=== PATIENT | female | born 1995 | race Caucasian/White ===

== ENCOUNTER 2017-01-17 12:15 | Emergency (ER) | payer MEDICAID ==
[2017-01-17 12:30] VITALS: BP 138/89
--- NOTE | 2017-01-17 13:09 | EDM.PDOC ---
ED HPI GENERAL MEDICAL PROBLEM - General Chief Complaint: Neuro Symptoms/Deficits Stated Complaint: PAIN/NUMBNESS AND TINGLING ALL OVER Time Seen by Provider: 01/17/17 12:29 Source of Information: Reports: Patient History Limitations: Reports: No Limitations - History of Present Illness INITIAL COMMENTS - FREE TEXT/NARRATIVE: Patient is a 21-year-old female presents to ED with multiple complaints. States most of her symptoms have been going on for many months and she's been worked up by her primary care provider for multiple as he states. She has been worked up for MS in the past with no positive findings. She presents today complaining of intermittent extreme fatigue, intermittent blurred vision, intermittent numbness and tingling everywhere, intermittent muscle pains everywhere, intermittent stiffness everywhere, intermittent pressure everywhere, constipation, anxiety,intermittent dizziness, forgetfulness, lack of motivation , intermittent headaches, loss of appetite, and intermittent urine leaking. She has chronic pain to the adnexal area and has been evaluated by dr. Farnsworth. She is scheduled to undergo exploratory laparoscopic surgery. She has had intermittent RUQ abdominal pain not affected by eating. Ultrasound of the abdomen was obtained with negative findings. Patient states since giving to a healthy boy this past Mar 2017 symptoms have increased. States she has in the past been on three different medications for depression to which she was required to quit with . 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 Providers who have evaluated the patient at [facility] are unclear what is contributing to her current state. Patient denies being under more stress recently or potentially having depression. Patient currently denies SOB, CP, N/V, weakness, N/T, vision changes, pain, or any additional complaints. Mother in law is present with patient. - Related Data Allergies Allergy/AdvReac Type Severity Reaction Status Date / Time No Known Allergies Allergy Verified 01/17/17 12:24 Home Meds: Home Meds Cholecalciferol (Vitamin D3) [Vitamin D] 5,000 unit PO DAILY 10/05/16 [History] Enoxaparin [Lovenox] 40 mg SUBCUT DAILY 10/05/16 [History] Potassium Chloride 20 meq PO DAILY 10/05/16 [History] Sertraline [Zoloft] 25 mg PO BEDTIME #30 tablet 01/17/17 [Rx] Past Medical History - Past Health History Medical/Surgical History: Denies Medical/Surgical History Respiratory History: Reports: PE Other Respiratory History: PE June 2015 Gastrointestinal History: Reports: Gastritis, GERD, Other (See Below) Other Gastrointestinal History: Ulcer B[employer]ER HYDRAULIC History: Reports: Other OB/BYN History: IUD Mirena Neurological History: Reports: Migraines Psychiatric History: Reports: Anxiety Hematologic History: Reports: Other (See Below) Other Hematologic History: factor 5 - Past Surgical History Respiratory Surgical History: Reports: None Neurological Surgical History: Reports: None Social & Family History - Family History Family Medical History: Noncontributory - Tobacco Use Smoking Status *Q: Never Smoker Second Hand Smoke Exposure: Yes - Caffeine Use Caffeine Use: Reports: Soda - Alcohol Use Days Per Week of Alcohol Use: 0 - Recreational Drug Use Recreational Drug Use: No ED ROS GENERAL - Review of Systems Review Of Systems: See Below Constitutional: Reports: Other (hot/cold). Denies: Fever, Chills HEENT: Reports: Vision Change (intermittent blurred vision) Respiratory: Denies: Shortness of Breath, Cough, Sputum, Hemoptysis Cardiovascular: Reports: Palpitations (intermittent). Denies: Chest Pain, Dyspnea on Exertion, Lightheadedness, Syncope GI/Abdominal: Reports: Abdominal Pain (intermittent, right ). Denies: Constipation, Diarrhea, Nausea, Vomiting : Reports: Incontinence (Onset since and delivery). Denies: Dysuria , Flank Pain, Frequency, Hematuria Musculoskeletal: Reports: Back Pain, Muscle Pain (generalized) ED EXAM, NEURO - Physical Exam Exam: See Below Exam Limited By: No Limitations General Appearance: Alert, WD/WN, No Apparent Distress Eye Exam: Bilateral Eye: EOMI, PERRL Ears: Hearing Grossly Normal Nose: Normal Inspection Throat/Mouth: Normal Inspection, Normal Oropharynx, Normal Voice, No Airway Compromise Head Exam: Atraumatic, Normocephalic Neck: Normal Inspection, Supple, Non-Tender, Full Range of Motion. No: Lymphadenopathy (L), Lymphadenopathy (R) Respiratory/Chest: No Respiratory Distress, Lungs Clear, Normal Breath Sounds, No Accessory Muscle Use, Chest Non-Tender Cardiovascular: Normal Peripheral Pulses, Regular Rate, Rhythm, No Murmur GI/Abdominal: Normal Bowel Sounds, Soft, Non-Tender, No Organomegaly, No Distention Neurological: Alert, Normal Mood/Affect, Normal Dorsiflexion, CN II-XII Intact, Normal Plantar Flexion, Normal Gait, No Motor/Sensory Deficits, Oriented x 3, Other (cerebellar intact: rhomberg, finger to nose. Able to walk on heals and toes. ) Back Exam: Normal Inspection Extremities: Normal Inspection, Normal Range of Motion, Non-Tender, No Pedal Edema, Normal Capillary Refill Psychiatric: Normal Affect, Normal Mood Skin Exam: Warm, Dry, Intact, Normal Color, No Rash Course - Vital Signs Last Recorded V/S: Last Vital Signs Temp 98.1 F 01/17/17 15:05 Pulse 85 01/17/17 15:05 Resp BP 138/89 01/17/17 12:25 Pulse Ox 99 01/17/17 15:05 - Orders/Labs/Meds Labs: Laboratory Tests 01/17/17 01/17/17 01/17/17 Range/Units 13:20 13:20 13:20 WBC 8.94 (3.98-10.04) K/mm3 RBC 4.85 (3.98-5.22) M/mm3 Hgb 14.0 (11.2-15.7) gm/L Hct 40.3 (34.1-44.9) % MCV 83.1 (79.4-94.8) fl MCH 28.9 (25.6-32.2) pg MCHC 34.7 (32.2-35.5) g/dl RDW Std Deviation 39.6 (36.4-46.3) fL Plt Count 236 (182-369) K/mm3 MPV 8.9 L (9.4-12.3) fl Neut % (Auto) 68.7 (34.0-71.1) % Lymph % (Auto) 23.9 (19.3-51.7) % Lassen % (Auto) 5.9 (4.7-12.5) % Eos % (Auto) 1.3 (0.7-5.8) Baso % (Auto) 0.1 (0.1-1.2) % Neut # (Auto) 6.13 (1.56-6.13) K/mm3 Lymph # (Auto) 2.14 (1.18-3.74) K/mm3 Lassen # (Auto) 0.53 H (0.24-0.36) K/mm3 Eos # (Auto) 0.12 (0.04-0.36) K/mm3 Baso # (Auto) 0.01 (0.01-0.08) K/mm3 ESR 13 (0-20) mm/hr Sodium 142 (136-145) mEq/L Potassium 3.8 (3.5-5.1) mEq/L Chloride 106 (98-107) mEq/L Carbon Dioxide 26 (21-32) mEq/L Anion Gap 13.8 (5-15) BUN 15 (7-18) mg/dL Creatinine 0.6 (0.55-1.02) mg/dL Est Cr Clr Drug Dosing TNP Estimated GFR (MDRD) > 60 (>60) mL/min BUN/Creatinine Ratio 25.0 H (14-18) Glucose 105 (74-106) mg/dL Calcium 8.8 (8.5-10.1) mg/dL Total Bilirubin 0.8 (0.2-1.0) mg/dL AST 14 L (15-37) U/L ALT 27 (14-59) U/L Alkaline Phosphatase 99 (46-116) U/L Total Protein 7.6 (6.4-8.2) g/dl Albumin 3.8 (3.4-5.0) g/dl Globulin 3.8 gm/dL Albumin/Globulin Ratio 1.0 (1-2) Urine Color (Yellow) Urine Appearance (Clear) Urine pH (5.0-8.0) Ur Specific Anton (1.005-1.030) Urine Protein (Negative) Urine Glucose (UA) (Negative) Urine Ketones (Negative) Urine Occult Blood (Negative) Urine Nitrite (Negative) Urine Bilirubin (Negative) Urine Urobilinogen (0.2-1.0) Ur Leukocyte Esterase (Negative) Urine RBC (0-5) /hpf Urine WBC (0-5) /hpf Ur Epithelial Cells Ur Squamous Epith Cells (0-5) /hpf Urine Bacteria (FEW) /hpf Urine Mucus (FEW) /hpf Urine HCG, Qual (NEGATIVE) 01/17/17 01/17/17 Range/Units 14:14 14:14 WBC (3.98-10.04) K/mm3 RBC (3.98-5.22) M/mm3 Hgb (11.2-15.7) gm/L Hct (34.1-44.9) % MCV (79.4-94.8) fl MCH (25.6-32.2) pg MCHC (32.2-35.5) g/dl RDW Std Deviation (36.4-46.3) fL Plt Count (182-369) K/mm3 MPV (9.4-12.3) fl Neut % (Auto) (34.0-71.1) % Lymph % (Auto) (19.3-51.7) % Lassen % (Auto) (4.7-12.5) % Eos % (Auto) (0.7-5.8) Baso % (Auto) (0.1-1.2) % Neut # (Auto) (1.56-6.13) K/mm3 Lymph # (Auto) (1.18-3.74) K/mm3 Lassen # (Auto) (0.24-0.36) K/mm3 Eos # (Auto) (0.04-0.36) K/mm3 Baso # (Auto) (0.01-0.08) K/mm3 ESR (0-20) mm/hr Sodium (136-145) mEq/L Potassium (3.5-5.1) mEq/L Chloride (98-107) mEq/L Carbon Dioxide (21-32) mEq/L Anion Gap (5-15) BUN (7-18) mg/dL Creatinine (0.55-1.02) mg/dL Est Cr Clr Drug Dosing Estimated GFR (MDRD) (>60) mL/min BUN/Creatinine Ratio (14-18) Glucose (74-106) mg/dL Calcium (8.5-10.1) mg/dL Total Bilirubin (0.2-1.0) mg/dL AST (15-37) U/L ALT (14-59) U/L Alkaline Phosphatase (46-116) U/L Total Protein (6.4-8.2) g/dl Albumin (3.4-5.0) g/dl Globulin gm/dL Albumin/Globulin Ratio (1-2) Urine Color Yellow (Yellow) Urine Appearance Clear (Clear) Urine pH 6.0 (5.0-8.0) Ur Specific Anton 1.025 (1.005-1.030) Urine Protein Negative (Negative) Urine Glucose (UA) Negative (Negative) Urine Ketones Negative (Negative) Urine Occult Blood Negative (Negative) Urine Nitrite Negative (Negative) Urine Bilirubin Negative (Negative) Urine Urobilinogen 0.2 (0.2-1.0) Ur Leukocyte Esterase Negative (Negative) Urine RBC Not seen (0-5) /hpf Urine WBC 0-5 (0-5) /hpf Ur Epithelial Cells Not Reportable Ur Squamous Epith Cells 0-5 (0-5) /hpf Urine Bacteria Not seen (FEW) /hpf Urine Mucus Not seen (FEW) /hpf Urine HCG, Qual Negative (NEGATIVE) - Re-Assessments/Exams Free Text/Narrative Re-Assessment/Exam: 01/17/17 13:03 Ordered CBC, chem 14, UA with micro-, ESR, and CRP, and urine hCG. 1310 Patient has multiple somatic complaints. Question is not related to depression. She has had extensive workup with no positive findings. 01/17/17 14:[address] Edge, he believes patient may have somatization disorder. She has been worked up for MS with MRI of brain and evaluation by Neurology. She has been on a multitude of antidepressants in the past. Nothing noted for the past two years. Agrees with starting the patient on zoloft 25mg everyday with further evaluation by Laurita Winkler or in the next few weeks for further evaluation and treatment. Departure - Departure Time of Disposition: 15:05 Disposition: Home, Self-Care 01 Clinical Impression: Somatic complaints, multiple, Numbness and tingling, Generalized headaches, Muscle pain, Lack of motivation, depression Fatigue Qualifiers: Fatigue type: due to depression Qualified Code(s): F32.9 - Major depressive disorder, single episode, unspecified Depressed Qualifiers: Depression Type: other depression Qualified Code(s): F32.89 - Other specified depressive episodes - Discharge Information Prescriptions: Sertraline [Zoloft] 25 mg PO BEDTIME #30 tablet Instructions: General Headache Without Cause, [id number] Referrals: Leilani Cardona PA-C [Primary Care Provider] - Jodi Winkler NP [Nurse Practitioner] - Darell Melo MD [Physician] - Forms: ED Department Discharge Additional Instructions: Will have you start taking zoloft 25mg every night has prescribed. Follow up with Leilani Cardona in one week for reevaluation and potential increase to medication dosage. Appt is scheduled with Laurita Winkler NP with Psychiatric Medicine February 03, 2107 at 430 pm. Arrive 15 minutes early. You may require testing to rule out MS. I will allow PCP to further work this up if deemed necessary. Prior testing for MS were negative and you have no concerning neurological findingsat this point on examination. Return to the E.D. as necessary for any new or worsening symptoms. Zoloft DRUG INFORMATION: What are some things I need to know or do while I take this drug? * Tell all of your health care providers that you take this drug. This includes your doctors, nurses, pharmacists, and dentists. * Avoid driving and doing other tasks or actions that call for you to be alert until you see how this drug affects you. * Do not stop taking this drug all of a sudden without calling your doctor. You may have a greater risk of side effects. If you need to stop this drug, you will want to slowly stop it as ordered by your doctor. * Avoid drinking alcohol while taking this drug. * Talk with your doctor before you use other drugs and natural products that slow your actions. * In depression, sleep and appetite may get better soon after starting this drug. Other low mood signs may take up to 4 weeks to get better. * This drug may raise the chance of a broken bone. Talk with the doctor. * This drug may raise the chance of bleeding. Sometimes, bleeding can be life- threatening. Talk with the doctor. * A very bad and sometimes deadly health problem called serotonin syndrome may happen. The risk may be greater if you take this drug with drugs for depression, migraines, or certain other drugs. Call your doctor right away if you have agitation; change in balance; confusion; hallucinations; fever; fast or abnormal heartbeat; flushing; muscle twitching or stiffness; seizures; shivering or shaking; sweating a lot; very bad diarrhea, upset stomach, or throwing up; or very bad headache. * Some people may have a higher chance of eye problems with this drug. Your doctor may want you to have an eye exam to see if you have a higher chance of these eye problems. Call your doctor right away if you have eye pain, change in eyesight, or swelling or redness in or around the eye. * This drug may affect certain lab tests. Tell all of your health care providers and lab workers that you take this drug. * Use with care in children. Talk with the doctor. * This drug may affect growth in children and teens in some cases. They may need regular growth checks. Talk with the doctor. * If you are 65 or older, use this drug with care. You could have more side effects. * Tell your doctor if you are or plan on getting . You will need to talk about the benefits and risks of using this drug while you are . * Taking this drug in the third trimester of may lead to some health problems in the . Talk with the doctor. * Tell your doctor if you are breast-feeding. You will need to talk about any risks to your baby. What are some side effects that I need to call my doctor about right away? * WARNING/CAUTION: Even though it may be rare, some people may have very bad and sometimes deadly side effects when taking a drug. Tell your doctor or get medical help right away if you have any of the following signs or symptoms that may be related to a very bad side effect: * Signs of an allergic reaction, like rash; hives; itching; red, swollen, blistered, or peeling skin with or without fever; wheezing; tightness in the chest or throat; trouble breathing or talking; unusual hoarseness; or swelling of the mouth, face, lips, tongue, or throat. * Signs of low sodium levels like headache, trouble focusing, memory problems , feeling confused, weakness, seizures, or change in balance. * Signs of bleeding like throwing up blood or throw up that looks like coffee grounds; coughing up blood; blood in the urine; black, red, or tarry stools; bleeding from the gums; vaginal bleeding that is not normal; bruises without a reason or that get bigger; or any bleeding that is very bad or that you cannot stop. * Change in how you act. * A heartbeat that does not feel normal. * Seizures. * Chest pain or pressure. * Not able to control bladder. * Very bad headache. * A big weight gain or loss. * Lowered interest in sex. * Change in sex ability. * For females, menstrual changes. These include lots of bleeding, spotting, or bleeding between cycles * Call your doctor right away if you have a painful erection (hard penis) or an erection that lasts for longer than 4 hours. This may happen even when you are not having sex. If this is not treated right away, it may lead to lasting sex problems and you may not be able to have sex. What are some other side effects of this drug? * All drugs may cause side effects. However, many people have no side effects or only have minor side effects. Call your doctor or get medical help if any of these side effects or any other side effects bother you or do not go away: * Dizziness. * Feeling sleepy. * Feeling tired or weak. * Nervous and excitable. * Upset stomach. * Loose stools (diarrhea). * Dry mouth. * Hard stools (constipation). * Not able to sleep. * Sweating a lot. * Shakiness. * Not hungry. * These are not all of the side effects that may occur. If you have questions about side effects, call your doctor. Call your doctor for medical advice about side effects. * You may report side effects to your national health agency. How is this drug best taken? * Use this drug as ordered by your doctor. Read all information given to you. Follow all instructions closely. * All products: * Keep taking this drug as you have been told by your doctor or other health care provider, even if you feel well. * To gain the most benefit, do not miss doses. * Tablets: * Take with or without food. * Capsules: * Take this drug with food. * Liquid: * Only use the measuring device that comes with this liquid drug. * Mix liquid with 1/2 cup of water, darshan annabelle, lemon-marshall soda, lemonade, or orange juice. * Drink it right away. What do I do if I miss a dose? * Take a missed dose as soon as you think about it. * If it is close to the time for your next dose, skip the missed dose and go back to your normal time. * Do not take 2 doses at the same time or extra doses. How do I store and/or throw out this drug? * Store at room temperature. * Store in a dry place. Do not store in a bathroom. * Keep all drugs in a safe place. Keep all drugs out of the reach of children and pets. * Check with your pharmacist about how to throw out unused drugs. General drug facts * If your symptoms or health problems do not get better or if they become worse, call your doctor. * Do not share your drugs with others and do not take anyone else's drugs. * Keep a list of all your drugs (prescription, natural products, vitamins, OTC ) with you. Give this list to your doctor. * Talk with the doctor before starting any new drug, including prescription or OTC, natural products, or vitamins. * Some drugs may have another patient information leaflet. If you have any questions about this drug, please talk with your doctor, nurse, pharmacist, or other health care provider. * If you think there has been an overdose, call your poison control center or get medical care right away. Be ready to tell or show what was taken, how much, and when it happened.
== END 2017-01-17 15:05 | disposition home or self-care (01) ==
LOC: JD.ED 12:15
DX: O99.345 Other mental disorders complicating the puerperium (principal); F32.89 Other specified depressive episodes; R20.0 Anesthesia of skin; R51 Headache; R52 Pain, unspecified; R27.9 Unspecified lack of coordination; F41.9 Anxiety disorder, unspecified; K21.9 Gastro-esophageal reflux disease without esophagitis; G43.909 Migraine, unspecified, not intractable, without status migrainosus; Z79.899 Other long term (current) drug therapy
CPT/HCPCS: 36415; 80053; 81001; 81025; 85025; 85652; 86141; 99283; 99284

== ENCOUNTER 2017-02-01 06:19 | Day surgery (SDC) | payer MEDICAID ==
--- NOTE | 2017-01-31 20:00 | PCM.HP ---
H&P History of Present Illness - General Date of Service: 02/01/17 Admit Problem/Dx: Pelvic pain Source of Information: Patient History Limitations: Reports: No Limitations - History of Present Illness Initial Comments - Free Text/Narative: Baudilio is a 21-year-old 1 para 1001 white female who was recently seen on 01/09/2017 in clinic for complaints of continued pelvic pain. Reports that the pain onset was while she is . It is worse after eating and with bowel movements and with voiding. She reports spotting on a daily basis but with some increased vaginal discharge. Pain is improved when she rests. She is frustrated by this pain as she does not know what is causing it. She was evaluated with transvaginal ultrasound in 12/30/2016 showing a uterus which was anteverted and midline. IUD was present within the endometrial cavity. No myometrial abnormalities were seen. Follicles were seen and within the ovaries but no cysts or solid abnormalities were present. No free fluid was identified. Measurements include: Uterus 6.0 cm in length by 2.9 cm x 4.4 cm in width Right ovary measures 3.8 x 2.5 x 3.0 cm Left ovary measures 3.8 x 2.2 x 2.7 cm. No specific abnormality is identified that could be the etiology of her pain. She will be evaluated with diagnostic laparoscopy. The procedure, risks, benefits, possible complications and possibility find in her treat the cause of her discomfort all discussed in detail patient. She appears to understand and wishes to proceed. Consent is signed. 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 Patient delivered by vaginal delivery within the last year. She is sexually active. Mirena IUD is used for treatment of her heavy and irregular periods and for contraception. No STDs noted in the past. She has not had a Pap smear at this time. Allergies none Current medications Lovenox 40 mg subcutaneous Q p.m. 2. Iron therapy 65 mg of elemental iron. 3. Mirena IUD 20 g/24 hours 4. Multivitamins daily 5. Potassium chloride 20 milliequivalents per day. Past medical history: 1.Vaginal delivery 2. Antithrombin III deficiency 3. Anxiety certain 4. Homozygous factor V Leiden mutation. 5. Irregular menses 6. Lupus anticoagulant positive. 7. Pelvic pain Past surgical history unremarkable Family history: Mom is alive,with varicosities; Dad alive and well; 1 brother alive and well; 2 sisters alive, well; MGM is alive; MGF-?- patient's mother is adopted; PGM-alive and well; PGF-, liver cancer. No bleeding, clotting , anesthesia or pg concerns in the family. Social history: patient is single, denies any significant alcohol drugs or tobacco. Is a [id number] mom. Review of systems: Skin-negative Cardiovascularno chest pain or exercise intolerance. Respiratory no asthma, infectious symptoms or shortness of breath GI no nausea or food intolerances -pelvic pain as described above. Extremities and musculoskeletalunremarkable Neurologic-unremarkable. Physical exam: Patient is afebrile, vital signs are stable. Her last evaluation clinic her height is 5 feet 3. Weight was 148.2. BMI was 26.25. Heart rate was 70. Systolic was 118. Diastolic was 70. Her pain as 7 on a scale of 10. General patient appears to be well-developed, well-nourished and pleasant. She is a good historian. She is not appear to be in pain as she describes it. Skin is warm and dry without lesions. HEENT, neck and back within normal limits. Lungs are clear with good breath sounds in all lung dumont. Cardiovascular exam shows regular rate and rhythm. Breast exam deferred. Abdomen is flat, soft, tender with deep palpation. Positive bowel sounds are noted. Patient mildly overweight. No inguinal hernias or adenopathy is present. Previously done gentle exam per speculum and bimanual shows normal external genitalia, BUS, pubic hair pattern. There is essentially normal support, secretions and and estrogenization and vagina. Wet prep previously was performed and was negative. Bimanual exam shows uterus to be freely mobile some tenderness is noted in the left and right lower quadrants. This with deep palpation. No masses are noted. No parametrial induration is noted. Extremities and neurological exam are grossly within normal limits. - Related Data Allergies/Adverse Reactions: Allergies Allergy/AdvReac Type Severity Reaction Status Date / Time No Known Allergies Allergy Verified 01/31/17 15:32 Home Medications: Home Meds Enoxaparin [Lovenox] 40 mg SUBCUT DAILY 10/05/16 [History] Potassium Chloride 20 meq PO DAILY 10/05/16 [History] Ferrous Sulfate [Iron] 325 mg PO DAILY 01/31/17 [History] Levonorgestrel [Mirena] 1 dose VAG ASDIRECTED 01/31/17 [History] Multivitamin [Multivitamins] 1 tab PO DAILY 01/31/17 [History] Past Medical History - Past Health History Medical/Surgical History: Denies Medical/Surgical History HEENT History: Reports: Other (See Below) Other HEENT History: jaw pain Cardiovascular History: Reports: Other (See Below) Other Cardiovascular History: palpitations, tachycardia Respiratory History: Reports: PE Other Respiratory History: PE June 2015 Gastrointestinal History: Reports: Chronic Constipation, Gastritis, GERD, Other (See Below) Other Gastrointestinal History: Ulcer, abdominal pain Genitourinary History: Reports: Other (See Below) Other Genitourinary History: hematuria, chlamydia, urinary frequency 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 OB/BYN History: irregular menses, pelvic pain, vaginal discahrge, menorrhagia, mastitis, Musculoskeletal History: Reports: Other (See Below) Other Musculoskeletal History: low back pain, chest wall pain, myalgias Neurological History: Reports: Headaches, Chronic, Migraines, Other (See Below) Other Neuro History: dizziness, paresthesias Psychiatric History: Reports: Anxiety, Other (See Below) Other Psychiatric History: hypersomnia, insomnia, fatigue Endocrine/Metabolic History: Reports: Vitamin D Deficiency, Other (See Below) Other Endocrine/Metabolic History: abnormal TSH, hypoglycemia Hematologic History: Reports: Other (See Below) Other Hematologic History: antithrombin 3 deficiency, facotr V leiden, hypokalemia, hypomagnesia Immunologic History: Reports: None Oncologic (Cancer) History: Reports: None Dermatologic History: Reports: None - Past Surgical History Head Surgeries/Procedures: Reports: None Respiratory Surgical History: Reports: None GI Surgical History: Reports: None Neurological Surgical History: Reports: None Social & Family History - Family History Family Medical History: Noncontributory - Tobacco Use Smoking Status *Q: Never Smoker Second Hand Smoke Exposure: Yes - Caffeine Use Caffeine Use: Reports: None, Soda - Alcohol Use Days Per Week of Alcohol Use: 0 - Recreational Drug Use Recreational Drug Use: No H&P Review of Systems - Review of Systems: Review Of Systems: See Below Exam - Exam Exam: See Below - Vital Signs Weight: 65.771 kg - Patient Data Lab Results last 24 hrs: Laboratory Results - last 24 hr 01/30/17 Range/Units 16:38 Urine Color Yellow (Yellow) Urine Appearance Cloudy H (Clear) Urine pH 6.0 (5.0-8.0) Ur Specific [place] > or = 1.030 (1.005-1.030) Urine Protein Trace H (Negative) Urine Glucose (UA) Negative (Negative) Urine Ketones Negative (Negative) Urine Occult Blood Negative (Negative) Urine Nitrite Negative (Negative) Urine Bilirubin Negative (Negative) Urine Urobilinogen 0.2 (0.2-1.0) Ur Leukocyte Esterase Negative (Negative) Result Diagrams: 01/30/17 16:38 *Q Meaningful Use (ADM) - VTE *Q VTE Criteria *Q: VTE Pharmacological Contraindications *Q: Bld Coagulation Disorder - Stroke *Q Stroke Criteria *Q: - AMI *Q AMI Criteria *Q: Problem List Initiated/Reviewed/Updated: Yes Orders Last 24hrs: Active Orders 24 hr Category Date Time Status Peripheral IV Care [RC] . DIRECTED Care 02/01/17 07:00 Active Verify Patient Consent Obtain [RC] ASDIRECTED Care 02/01/17 07:00 Active HCG QUALITATIVE,URINE [URCHEM] Routine Lab 02/01/17 07:00 Uncollected INR,PT,PROTHROMBIN TIME [COAG] Routine Lab 02/01/17 06:30 Ordered Lactated Ringers [Ringers, Lactated] 1,000 ml Med 02/01/17 07:00 Active IV ASDIRECTED Lidocaine 1%/Sod Bicarbonate [Buffered Lidocaine 1% in Med 02/01/17 07:00 Active NS 8.4%] 0.25 ml .XX ONETIME PRN Sodium Chloride 0.9% [Saline Flush] Med 02/01/17 07:00 Active 10 ml FLUSH ASDIRECTED PRN Medication Administration Instruction [OM.PC] Routine Oth 02/01/17 07:00 Ordered Peripheral IV Insertion Adult [OM.PC] Routine Oth 02/01/17 07:00 Ordered Medication Orders Lactated Ringer's (Ringers, Lactated) 1,000 mls @ 125 mls/hr IV ASDIRECTED TABATHA Stop: 02/01/17 23:00 Lidocaine/Sodium Bicarbonate (Buffered Lidocaine 1% In Ns 8.4%) 0.25 ml .XX ONETIME PRN PRN Reason: Prior to IV Start Stop: 02/01/17 18:00 Sodium Chloride (Saline Flush) 10 ml FLUSH ASDIRECTED PRN PRN Reason: Keep Vein Open Stop: 02/01/17 18:00 Assessment/Plan Comment:: Assessment: 1. Chronic pelvic pain-etiology uncertain, pelvic ultrasound normal. 2. History of blood clotting disorder with homozygous factor V Leiden mutation and lupus anticoagulant positive status. Also with antithrombin III deficiency. Patient is continuously on Lovenox daily at 40 mg per day. She has stopped this prior to surgery 3. Presently nursing at this time. 4. Mirena IUD in place. Pain started before the Mirena was placed. Plan: 1. Diagnostic laparoscopy scheduled for 02/01/2017 at [facility] 2. DVT prophylaxis with SCDs 3. Ancef 2 g IV preop for infection prophylaxis. 4. Patient is to pump and discard milk for 12 hours after she has anesthesia 5. Patient was stopped Lovenox therapy with last dose taken to night before the surgery. We'll start it again after surgery is completed. 6. Laboratory testing consistent CBC, urinalysis, hCG.
[2017-02-01] MEDS ORDERED: Dexamethasone 4 MG/ML 5 ML MDV ONE (06:35)
[2017-02-01] MEDS ORDERED: Lidocaine 1% 4 ML ONE (06:35)
[2017-02-01] MEDS ORDERED: Ondansetron 4 MG/2 ML SDV ONE (06:35)
[2017-02-01] MEDS ORDERED: Ketorolac 30 MG/ML SDV ONE (06:35)
[2017-02-01] MEDS ORDERED: Rocuronium 50 MG/5 ML Vial ONE (06:35)
[2017-02-01] MEDS ORDERED: ceFAZolin 1 GM Vial ONE (06:39)
[2017-02-01] MEDS ORDERED: Midazolam 1 MG/ML 2 ML SDV ONE (06:39)
[2017-02-01] MEDS ORDERED: fentaNYL 250 MCG/5 ML SDV ONE (06:39)
[2017-02-01] MEDS ORDERED: Propofol 200 MG/20 ML SDV ONE (06:39)
[2017-02-01] MEDS ORDERED: Bupivacaine 0.5% 30 ML SDV ONE (06:44)
[2017-02-01] MEDS ORDERED: Sodium Chloride 0.9% 50 ML SDV ONE (06:45)
[2017-02-01] MEDS ORDERED: Lidocaine 1%/Sod Bicarbonate in NS 8.4% 1 ML Syringe PRN (07:00)
[2017-02-01] MEDS ORDERED: Sodium Chloride 0.9% 10 ML Syringe FLUSH PRN (07:00)
[2017-02-01] MEDS ORDERED: Lactated Ringers 1,000 ML IV SCH (07:00)
--- NOTE | 2017-02-01 07:07 | PCM.PREANE ---
Preanesthetic Assessment - Procedure Proposed Procedure: Diagnostic laparoscopy - Anesthesia/Transfusion/Family Hx Anesthesia History: No Prior Anesthesia Family History of Anesthesia Reaction: No Transfusion History: No Prior Transfusion(s) Intubation History: Unknown - Review of Systems General: No Symptoms Pulmonary: Other (H/O pulmonary embolism in Jun 2015) Cardiovascular: Palpitations (Occasionally), Dyspnea on Exertion (When palpitations occur) Neurological: Dizziness, Headache (Frequently), Numbness (In arms and legs occasionally), Paresthesia, Tingling, Other (Lupus, Factor 5 Leiden mutation, AT3 deficiency) Other: Reports: Thyroid Problems (Abnormal TSH), Neck Pain, Anxiety - Physical Assessment NPO Status Date: 01/31/17 NPO Status Time: 21:00 Pulse: 75 O2 Sat by Pulse Oximetry: 98 Respiratory Rate: 16 Blood Pressure: 132/80 Temperature: 36.2 C Vital Signs: Last Vital Signs Temp 36.2 C 02/01/17 06:25 Pulse 75 02/01/17 06:25 Resp 16 02/01/17 06:25 BP 132/80 02/01/17 06:25 Pulse Ox 98 02/01/17 06:25 Height: 1.6 m Weight: 66.678 kg ASA Class: 3 Mental Status: Alert & Oriented x3 Airway Class: Mallampati = 1 Dentition: Reports: Normal Dentition Thyro-Mental Finger Breadths: 3 Mouth Opening Finger Breadths: 3 ROM/Head Extension: Full Lungs: Clear to auscultation, Normal respiratory effort Cardiovascular: Regular Rate, Regular Rhythm, No Murmurs - Lab Values: Laboratory Last Values WBC 7.87 K/mm3 (3.98-10.04) 01/30/17 16:38 RBC 4.83 M/mm3 (3.98-5.22) 01/30/17 16:38 Hgb 14.1 gm/L (11.2-15.7) 01/30/17 16:38 Hct 39.6 % (34.1-44.9) 01/30/17 16:38 MCV 82.0 fl (79.4-94.8) 01/30/17 16:38 MCH 29.2 pg (25.6-32.2) 01/30/17 16:38 MCHC 35.6 g/dl (32.2-35.5) H 01/30/17 16:38 RDW Std Deviation 38.5 fL (36.4-46.3) 01/30/17 16:38 Plt Count 253 K/mm3 (182-369) 01/30/17 16:38 MPV 9.0 fl (9.4-12.3) L 01/30/17 16:38 Neut % (Auto) 59.0 % (34.0-71.1) 01/30/17 16:38 Lymph % (Auto) 32.1 % (19.3-51.7) 01/30/17 16:38 [place] % (Auto) 5.2 % (4.7-12.5) 01/30/17 16:38 Eos % (Auto) 3.2 (0.7-5.8) 01/30/17 16:38 Baso % (Auto) 0.4 % (0.1-1.2) 01/30/17 16:38 Neut # (Auto) 4.64 K/mm3 (1.56-6.13) 01/30/17 16:38 Lymph # (Auto) 2.53 K/mm3 (1.18-3.74) 01/30/17 16:38 [place] # (Auto) 0.41 K/mm3 (0.24-0.36) H 01/30/17 16:38 Eos # (Auto) 0.25 K/mm3 (0.04-0.36) 01/30/17 16:38 Baso # (Auto) 0.03 K/mm3 (0.01-0.08) 01/30/17 16:38 HCG, Qual Negative (NEGATIVE) 01/30/17 16:48 Urine Color Yellow (Yellow) 01/30/17 16:38 Urine Appearance Cloudy (Clear) H 01/30/17 16:38 Urine pH 6.0 (5.0-8.0) 01/30/17 16:38 Ur Specific [place] > or = 1.030 (1.005-1.030) 01/30/17 16:38 Urine Protein Trace (Negative) H 01/30/17 16:38 Urine Glucose (UA) Negative (Negative) 01/30/17 16:38 Urine Ketones Negative (Negative) 01/30/17 16:38 Urine Occult Blood Negative (Negative) 01/30/17 16:38 Urine Nitrite Negative (Negative) 01/30/17 16:38 Urine Bilirubin Negative (Negative) 01/30/17 16:38 Urine Urobilinogen 0.2 (0.2-1.0) 01/30/17 16:38 Ur Leukocyte Esterase Negative (Negative) 01/30/17 16:38 Labs reviewed and ok to proceed with planned procedure - Allergies Allergies/Adverse Reactions: Allergies Allergy/AdvReac Type Severity Reaction Status Date / Time No Known Allergies Allergy Verified 01/31/17 15:32 - Blood Blood Available: No Product(s) Available: None - Anesthesia Plan Pre-Op Medication Ordered: None - Acknowledgements Anesthesia Type Planned: General Anesthesia Pt an Appropriate Candidate for the Planned Anesthesia: Yes Alternatives and Risks of Anesthesia Discussed w Pt/Guardian: Yes Pt/Guardian Understands and Agrees with Anesthesia Plan: Yes PreAnesthesia Questionnaire - Past Health History Medical/Surgical History: Denies Medical/Surgical History HEENT History: Reports: Other (See Below) Other HEENT History: jaw pain Cardiovascular History: Reports: Other (See Below) Other Cardiovascular History: palpitations, tachycardia Respiratory History: Reports: PE Other Respiratory History: PE June 2015 Gastrointestinal History: Reports: Chronic Constipation, Gastritis, GERD, Other (See Below) Other Gastrointestinal History: Ulcer, abdominal pain Genitourinary History: Reports: Other (See Below) Other Genitourinary History: hematuria, chlamydia, urinary frequency 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: irregular menses, pelvic pain, vaginal discahrge, menorrhagia, mastitis, Musculoskeletal History: Reports: Other (See Below) Other Musculoskeletal History: low back pain, chest wall pain, myalgias Neurological History: Reports: Headaches, Chronic, Migraines, Other (See Below) Other Neuro History: dizziness, paresthesias Psychiatric History: Reports: Anxiety, Other (See Below) Other Psychiatric History: hypersomnia, insomnia, fatigue Endocrine/Metabolic History: Reports: Vitamin D Deficiency, Other (See Below) Other Endocrine/Metabolic History: abnormal TSH, hypoglycemia Hematologic History: Reports: Other (See Below) Other Hematologic History: antithrombin 3 deficiency, facotr V leiden, hypokalemia, hypomagnesia Immunologic History: Reports: None Oncologic (Cancer) History: Reports: None Dermatologic History: Reports: None - Past Surgical History Head Surgeries/Procedures: Reports: None Respiratory Surgical History: Reports: None GI Surgical History: Reports: None Neurological Surgical History: Reports: None - SUBSTANCE USE Smoking Status *Q: Never Smoker Tobacco Use Within Last Twelve Months: No Second Hand Smoke Exposure: Yes Days Per Week of Alcohol Use: 0 Number of Drinks Per Day: 0 Total Drinks Per Week: 0 Recreational Drug Use History: No - HOME MEDS Home Medications: Home Meds Enoxaparin [Lovenox] 40 mg SUBCUT DAILY 10/05/16 [History] Potassium Chloride 20 meq PO DAILY 10/05/16 [History] Ferrous Sulfate [Iron] 325 mg PO DAILY 01/31/17 [History] Levonorgestrel [Mirena] 1 dose VAG ASDIRECTED 01/31/17 [History] Multivitamin [Multivitamins] 1 tab PO DAILY 01/31/17 [History] - CURRENT (IN HOUSE) MEDS Current Meds: Current Medications Lactated Ringer's (Ringers, Lactated) 1,000 mls @ 125 mls/hr IV ASDIRECTED TABATHA Stop: 02/01/17 23:00 Last Admin: 02/01/17 06:43 Dose: 125 mls/hr Lidocaine/Sodium Bicarbonate (Buffered Lidocaine 1% In Ns 8.4%) 0.25 ml .XX ONETIME PRN PRN Reason: Prior to IV Start Stop: 02/01/17 18:00 Last Admin: 02/01/17 06:43 Dose: 0.25 ml Sodium Chloride (Saline Flush) 10 ml FLUSH ASDIRECTED PRN PRN Reason: Keep Vein Open Stop: 02/01/17 18:00 Discontinued Medications Bupivacaine HCl (Marcaine 0.5%) Confirm Administered Dose 30 ml .ROUTE .STK-MED ONE Stop: 02/01/17 06:45 Cefazolin Sodium (Ancef) Confirm Administered Dose 2 gm .ROUTE .STK-MED ONE Stop: 02/01/17 06:40 Dexamethasone (Dexamethasone) Confirm Administered Dose 20 mg .ROUTE .STK-MED ONE Stop: 02/01/17 06:36 Fentanyl (Sublimaze) Confirm Administered Dose 250 mcg .ROUTE .STK-MED ONE Stop: 02/01/17 06:40 Lidocaine HCl (Xylocaine-Mpf 1%) Confirm Administered Dose 4 mls @ as directed .ROUTE .STK-MED ONE Stop: 02/01/17 06:36 Ketorolac Tromethamine (Toradol) Confirm Administered Dose 30 mg .ROUTE .STK- MED ONE Stop: 02/01/17 06:36 Midazolam HCl (Versed 1 Mg/Ml) Confirm Administered Dose 2 mg .ROUTE .STK-MED ONE Stop: 02/01/17 06:40 Ondansetron HCl (Zofran) Confirm Administered Dose 4 mg .ROUTE .STK-MED ONE Stop: 02/01/17 06:36 Propofol (Diprivan 20 Ml) Confirm Administered Dose 200 mg .ROUTE .STK-MED ONE Stop: 02/01/17 06:40 Rocuronium [place] (Zemuron) Confirm Administered Dose 50 mg .ROUTE .STK-MED ONE Stop: 02/01/17 06:36 Sodium Chloride (Normal Saline) Confirm Administered Dose 50 ml .ROUTE .STK-MED ONE Stop: 02/01/17 06:46
[2017-02-01] MEDS ORDERED: HYDROmorphone 1 MG/ML Syringe ONE (08:16)
[2017-02-01] MEDS ORDERED: Neostigmine Methylsulfate 1 MG/ML 5 ML Syringe ONE (08:16)
[2017-02-01] MEDS ORDERED: Lactated Ringers 1,000 ML ONE (08:19)
[2017-02-01] MEDS ORDERED: Ondansetron 4 MG/2 ML SDV IVPUSH PRN ×2 (08:24→08:38)
--- NOTE | 2017-02-01 08:31 | PCM.OPNOTE ---
- General Post-Op/Procedure Note Date of Surgery/Procedure: 02/01/17 Operative Procedure(s): Laparoscopy with lysis of pelvic adhesions Findings: Pelvic adhesions involving the left ovary and the omentum along the left pelvic sidewall. Uterus tubes and ovaries otherwise within normal limits. No evidence of endometriosis. Anterior and posterior cul-de-sacs unremarkable. Appendix appears noninflamed. Liver edge normal. Pre Op Diagnosis: Chronic pelvic pain Post-Op Diagnosis: Same with pelvic adhesions Anesthesia Technique: General ET tube Other Anesthesia Type: Marcaine 0.5% local Primary Surgeon: Eddie Farnsworth Secondary Surgeon: Monie Lopez Anesthesia Provider: Bhavesh Jensen Fluid Replacement, Intraop: 1,000 (Crystalloid) Output, Urine Amount: 35 EBL in mLs: 10 Drain/Tube Comments:: Indwelling bladder catheter during surgery only Complications: None Condition: Good Free Text/Narrative:: Surgery duration: 23 minutes Procedure: The patient was taken to the operating room placed in supine position on the operating table. She is appropriately consented prior to the procedure. She's given 2 g of Ancef IV preop for infection prophylaxis and had sequential compression stockings placed for DVT prophylaxis. After adequate general endotracheal anesthesia the patient's placed in a dorsal lithotomy position and prepped and draped in usual fashion. An indwelling bladder catheter is placed as as a uterine manipulator. Laparoscopy was then performed. The infraumbilical incision site and superior weeks at our infiltrated with Marcaine 0.5% approximately 3-5 mL at each site. 5 mm incisions were made and varies needle was placed. Pneumoperitoneum was established using 3 L of CO2. Under direct visualization a second port and superior areas established. Patient is found to have some adhesions involving the underside of her left ovary adhering her ovary to left pelvic sidewall and to the descending colon. These are light wispy adhesions are taken down in a blunt fashion. There is an omental adhesion to the end of the fallopian tube which is taken down in a similar fashion. One other adhesion from the bowel to the left pelvic sidewall is bandlike in nature and is taken down in a blunt fashion. Stasis confirmed at this point. Remainder evaluation is within normal limits as described above. At this point the lower sleeve was removed, pneumoperitoneum was reversed and the upper sleeve was removed. Both incisions were closed with single interrupted suture of 3-0 Monocryl and Dermabond skin glue. The uterine manipulator and indwelling bladder catheter removed prior to patient being awakened from general endotracheal anesthesia. She tolerated the procedure well left the operating room in satisfactory condition
--- NOTE | 2017-02-01 08:37 | PCM.POSTAN ---
POST ANESTHESIA ASSESSMENT - MENTAL STATUS Mental Status: alert, oriented - VITAL SIGNS Pulse Rate: 96 SaO2: 98 Resp Rate: 15 Blood Pressure: 135/87 Temperature: 36.8 C - RESPIRATORY Respiratory Status: respiratory rate WNL, airway patent, O2 saturation stable, supplemental oxygen - CARDIOVASCULAR CV Status: pulse rate WNL, blood pressure stable - GASTROINTESTINAL GI Status: no symptoms - PAIN Pain Score: 0 - POST OP HYDRATION Hydration Status: adequate & stable
[2017-02-01] MEDS ORDERED: diphenhydrAMINE 50 MG/ML SDV IVPUSH PRN (08:38)
[2017-02-01] MEDS ORDERED: Meperidine PF 50 MG/ML Syringe IVPUSH PRN (08:38)
[2017-02-01] MEDS ORDERED: Ketorolac 30 MG/ML SDV IVPUSH ONE (09:30)
[2017-02-01] MEDS ORDERED: fentaNYL 100 MCG/2 ML SDV IVPUSH PRN (09:50)
[2017-02-01] MEDS ORDERED: HYDROmorphone 0.5 MG/0.5 ML Syringe IVPUSH PRN (09:50)
[2017-02-01] MEDS ORDERED: Acetaminophen/oxyCODONE 325-5 MG Tab PO ONE (10:45)
[2017-02-01 13:22] VITALS: BP 115/64
== END 2017-02-01 12:48 | disposition home or self-care (01) ==
LOC: JD.SDS 06:19
PROVIDERS: ATTEND Obstetrics & Gynecology
DX: N73.6 Female pelvic peritoneal adhesions (postinfective) (principal); G47.10 Hypersomnia, unspecified; D68.59 Other primary thrombophilia; F41.9 Anxiety disorder, unspecified; D68.52 Prothrombin gene mutation; D68.9 Coagulation defect, unspecified; K21.9 Gastro-esophageal reflux disease without esophagitis; K59.09 Other constipation; G43.909 Migraine, unspecified, not intractable, without status migrainosus; E55.9 Vitamin D deficiency, unspecified; Z86.711 Personal history of pulmonary embolism; Z97.5 Presence of (intrauterine) contraceptive device; Z79.899 Other long term (current) drug therapy; Z79.01 Long term (current) use of anticoagulants
CPT/HCPCS: 36415; 58660; 81003; 84703; 85025; 85610; A9270; J0690; J1100; J1170; J1885; J2250; J2405; J2710; J3010; J7120; 00840; J2704

== ENCOUNTER 2020-02-11 07:02 | Day surgery (SDC) | payer OTHER ==
[~2020-02-11 07:02] MED LIST: Lactated Ringers 1,000 ML IV SCH; Lidocaine 1%/Sod Bicarbonate in NS 8.4% 1 ML Syringe IDERM PRN; Sodium Chloride 0.9% 10 ML Syringe FLUSH PRN
[2020-02-11] MEDS: Lactated Ringers 1,000 ML IV SCH ×2 (07:20→13:00)
[2020-02-11] MEDS ORDERED: Ondansetron 4 MG/2 ML SDV ONE (07:21)
[2020-02-11] MEDS ORDERED: Rocuronium 50 MG/5 ML Vial ONE ×2 (07:21→07:27)
[2020-02-11] MEDS ORDERED: Lactated Ringers 1,000 ML ONE (07:21)
[2020-02-11] MEDS ORDERED: Lidocaine 1% 0 ML ONE (07:21)
[2020-02-11] MEDS ORDERED: ceFAZolin 1 GM Vial ONE ×2 (07:21→08:14)
[2020-02-11] MEDS ORDERED: fentaNYL 250 MCG/5 ML SDV ONE (07:22)
[2020-02-11] MEDS ORDERED: Midazolam 1 MG/ML 2 ML SDV ONE ×3 (07:22→08:00)
[2020-02-11] MEDS ORDERED: Propofol 200 MG/20 ML SDV ONE ×3 (07:22→08:15)
[2020-02-11] MEDS ORDERED: Dextrose 5% in Water 100 ML ONE (07:26)
[2020-02-11] MEDS ORDERED: Methylene Blue 50 MG/10 ML Ampule ONE (07:26)
[2020-02-11] MEDS ORDERED: Bupivacaine 0.5% 30 ML SDV ONE (07:26)
[2020-02-11] MEDS ORDERED: Succinylcholine/Sod PF 100 MG/5 ML SYRINGE IV ONE (07:27)
[2020-02-11] MEDS ORDERED: fentaNYL 100 MCG/2 ML SDV ONE ×2 (07:27→08:13)
--- NOTE | 2020-02-11 07:42 | PCM.PREANE ---
Preanesthetic Assessment - Anesthesia/Transfusion/Family Hx Anesthesia History: No Prior Anesthesia Transfusion History: No Prior Transfusion(s) Intubation History: Unknown - Review of Systems General: No Symptoms Pulmonary: No Symptoms Cardiovascular: No Symptoms Gastrointestinal: No Symptoms Neurological: No Symptoms Other: Reports: None - Physical Assessment NPO Status Date: 02/10/20 NPO Status Time: 20:30 Vital Signs: Last Vital Signs Temp 97.8 F 02/11/20 07:15 Pulse 85 02/11/20 07:15 Resp 16 02/11/20 07:15 BP 135/89 02/11/20 07:15 Pulse Ox 97 02/11/20 07:15 Height: 1.63 m Weight: 68.039 kg ASA Class: 2 Mental Status: Alert & Oriented x3 Airway Class: Mallampati = 2 Dentition: Reports: Normal Dentition Thyro-Mental Finger Breadths: 3 Mouth Opening Finger Breadths: 3 ROM/Head Extension: Full Lungs: Clear to Auscultation, Normal Respiratory Effort Cardiovascular: Regular Rate, Regular Rhythm - Lab Values: Laboratory Last Values Urine HCG, Qual Negative (NEGATIVE) 02/10/20 07:10 - Allergies Allergies/Adverse Reactions: Allergies Allergy/AdvReac Type Severity Reaction Status Date / Time No Known Allergies Allergy Verified 02/10/20 14:32 - Acknowledgements Anesthesia Type Planned: General Anesthesia Pt an Appropriate Candidate for the Planned Anesthesia: Yes Alternatives and Risks of Anesthesia Discussed w Pt/Guardian: Yes Pt/Guardian Understands and Agrees with Anesthesia Plan: Yes PreAnesthesia Questionnaire - Past Health History Medical/Surgical History: Denies Medical/Surgical History HEENT History: Reports: Allergic Rhinitis, Otitis Media, Other (See Below) Other HEENT History: jaw pain Cardiovascular History: Reports: Other (See Below) Other Cardiovascular History: palpitations, tachycardia Respiratory History: Reports: PE Other Respiratory History: PE June 2015 Gastrointestinal History: Reports: Gastritis, GERD, Irritable Bowel Syndrome, Other (See Below) Other Gastrointestinal History: Ulcer Genitourinary History: Reports: Other (See Below) Other Genitourinary History: hematuria, chlamydia, urinary frequency OUTREACH LIBRARIAN History: Reports: Other OB/BYN History: multiple nabothian cysts, pelvic pain, PCOS, galactorrhea , Bacterial vaginosis, irregular menses, , laparoscopy with lysis of adhesions Musculoskeletal History: Reports: Back Pain, Chronic, Other (See Below) Other Musculoskeletal History: low back pain, chest wall pain, myalgias Neurological History: Reports: Migraines Other Neuro History: dizziness, paresthesias Psychiatric History: Reports: ADHD, Anxiety, Depression Other Psychiatric History: hypersomnia, insomnia, fatigue Endocrine/Metabolic History: Reports: Hypothyroidism, Vitamin D Deficiency, Other (See Below) Other Endocrine/Metabolic History: abnormal TSH, hypoglycemia, female hirsutism Hematologic History: Reports: Other (See Below) Other Hematologic History: factor 5 Leiden , antithrombin 3 deficiency, bleeding disorder, hypokalemia, anemia Immunologic History: Reports: None Oncologic (Cancer) History: Reports: None Dermatologic History: Reports: Other (See Below) Other Dermatologic History: ance - Past Surgical History Head Surgeries/Procedures: Reports: None HEENT Surgical History: Reports: None Cardiovascular Surgical History: Reports: None Respiratory Surgical History: Reports: None GI Surgical History: Reports: None Endocrine Surgical History: Reports: None Neurological Surgical History: Reports: None Musculoskeletal Surgical History: Reports: None Oncologic Surgical History: Reports: None Dermatological Surgical History: Reports: None - SUBSTANCE USE Smoking Status *Q: Never Smoker Recreational Drug Use History: No - HOME MEDS Home Medications: Home Meds Enoxaparin [Lovenox] 40 mg SUBCUT DAILY 10/05/16 [History] Potassium Chloride 20 meq PO DAILY 10/05/16 [History] Acetylcysteine [Nac] 500 mg PO DAILY 02/10/20 [History] Amphetamine/Dextroamphetamine [Adderall XR] 15 mg PO QAM 02/10/20 [History] Amphetamine/Dextroamphetamine [Adderall XR] 20 mg PO 1200 02/10/20 [History] Clindamycin Phos/Benzoyl Perox [Clinda-Benzoyl Perox 1-5% Pump] 1 dose TOP BID 02/10/20 [History] Cyanocobalamin (Vitamin B-12) [Vitamin B-12] 1,000 mcg PO DAILY 02/10/20 [ History] Glucosamine/D3/Boswellia Lucy [Osteo Bi-Flex Caplet] 2 tab PO QAM 02/10/20 [ History] L.acidoph,Paracasei, B.lactis [Probiotic] 1 cap PO DAILY 02/10/20 [History] Loratadine [Claritin] 10 mg PO DAILY PRN 02/10/20 [History] Potassium Chloride 20 meq PO DAILY 02/10/20 [History] Turmeric Root Extract [Turmeric Curcumin] 500 mg PO DAILY 02/10/20 [History] Vitamin E Acid Succinate [Vitamin E] 100 unit PO DAILY 02/10/20 [History] metFORMIN [Glucophage] 500 mg PO TID 02/10/20 [History] - CURRENT (IN HOUSE) MEDS Current Meds: Current Medications Discontinued Medications Bupivacaine HCl (Marcaine 0.5%) Confirm Administered Dose 30 ml .ROUTE .STK-MED ONE Stop: 02/11/20 07:27 Cefazolin Sodium (Ancef) Confirm Administered Dose 2 gm .ROUTE .STK-MED ONE Stop: 02/11/20 07:22 Fentanyl (Sublimaze) Confirm Administered Dose 250 mcg .ROUTE .STK-MED ONE Stop: 02/11/20 07:23 Fentanyl (Sublimaze) Confirm Administered Dose 100 mcg .ROUTE .STK-MED ONE Stop: 02/11/20 07:28 Lactated Ringer's (Ringers, Lactated) 1,000 mls @ 125 mls/hr IV ASDIRECTED TABATHA Stop: 02/10/20 23:00 Lidocaine HCl (Xylocaine-Mpf 1%) Confirm Administered Dose 4 mls @ as directed .ROUTE .STK-MED ONE Stop: 02/11/20 07:22 Lactated Ringer's (Ringers, Lactated) Confirm Administered Dose 1,000 mls @ as directed .ROUTE .STK-MED ONE Stop: 02/11/20 07:22 Dextrose/Water (Dextrose 5% In Water) Confirm Administered Dose 100 mls @ as directed .ROUTE .STK-MED ONE Stop: 02/11/20 07:27 Lidocaine/Sodium Bicarbonate (Buffered Lidocaine 1% In Ns 8.4%) 0.25 ml IDERM ONETIME PRN PRN Reason: Prior to IV Start Stop: 02/10/20 18:00 Methylene Blue (Provayblue) Confirm Administered Dose 50 mg .ROUTE .STK-MED ONE Stop: 02/11/20 07:27 Midazolam HCl (Versed 1 Mg/Ml) Confirm Administered Dose 2 mg .ROUTE .STK-MED ONE Stop: 02/11/20 07:23 Midazolam HCl (Versed 1 Mg/Ml) Confirm Administered Dose 2 mg .ROUTE .STK-MED ONE Stop: 02/11/20 07:28 Ondansetron HCl (Zofran) Confirm Administered Dose 4 mg .ROUTE .STK-MED ONE Stop: 02/11/20 07:22 Propofol (Diprivan 20 Ml) Confirm Administered Dose 400 mg .ROUTE .STK-MED ONE Stop: 02/11/20 07:23 Propofol (Diprivan 20 Ml) Confirm Administered Dose 200 mg .ROUTE .STK-MED ONE Stop: 02/11/20 07:27 Rocuronium Thornton (Zemuron) Confirm Administered Dose 50 mg .ROUTE .STK-MED ONE Stop: 02/11/20 07:22 Rocuronium Thornton (Zemuron) Confirm Administered Dose 50 mg .ROUTE .STK-MED ONE Stop: 02/11/20 07:28 Sodium Chloride (Saline Flush) 10 ml FLUSH ASDIRECTED PRN PRN Reason: Keep Vein Open Stop: 02/10/20 18:00
[2020-02-11] MEDS ORDERED: Lidocaine 1% 4 ML ONE (07:45)
[2020-02-11] MEDS ORDERED: Ketamine 500 mg/10 ML MDV ONE (08:15)
[2020-02-11] MEDS ORDERED: Lactated Ringers 0 ML ONE (08:17)
[2020-02-11] MEDS ORDERED: Ketorolac 30 MG/ML SDV ONE (08:35)
[2020-02-11] MEDS ORDERED: Acetaminophen/oxyCODONE 325-5 MG Tab PO PRN (08:50)
[2020-02-11] MEDS ORDERED: Ondansetron 4 MG/2 ML SDV IVPUSH PRN (08:50)
--- NOTE | 2020-02-11 08:56 | PCM.OPNOTE ---
- General Post-Op/Procedure Note Date of Surgery/Procedure: 02/11/20 Operative Procedure(s): Laparoscopy, chromotubation Findings: Uterus tubes and ovaries looked to be within normal limits as was turned posterior cul-de-sac. The appendix looked flaccid and noninflamed. Liver edge and gallbladder were noninflamed and normal in appearance as was the left lobe of liver. Chromotubation showed normal fill and spill of methylene blue from bilateral fallopian tubes. No etiology of pain or patient secondary infertility identified. Pre Op Diagnosis: 1. Chronic pelvic pain. 2. Secondary infertility Post-Op Diagnosis: Same Anesthesia Technique: General ET Tube Other Anesthesia Type: Marcaine 0.5%approximately 8 mL total Primary Surgeon: Eddie Farnsworth Secondary Surgeon: Be Haines Anesthesia Provider: Saurabh Sampson Roof Bolter Operator: Michelle Billings Reason Roof Bolter Operator Was Necessary: Assistance, retraction, patient's safety, quality of care. Fluid Replacement, Intraop: 1,500 Output, Urine Amount: 100 EBL in mLs: 5 Complications: None Condition: Good Free Text/Narrative:: Surgery duration: 18 minutes Procedure: The patient was taken to the operating room and placed in supine position on the operative table. She had sequential compression stockings in place for DVT prophylaxis and had been given 2 g of Ancef IV for infection prophylaxis. She was administered general endotracheal anesthesia. After administration of anesthesia the patient was placed in dorsal lithotomy position and prepped and draped in usual fashion. An indwelling bladder catheter was placed as was a uterine manipulator. It should be noted the uterus sounded to 7 cm and was noted to be anterior and mid position. Infraumbilical incision site and suprapubic site were then infiltrated with approximately 3-4 mL of Marcaine 0.5%. 5 mm incisions were made in these areas. Varies needle was placed in the infraumbilical incision site and pneumoperitoneum was established was in 4 L of CO2. The laparoscopic sleeve was then placed as was the scope. Under direct visualization the suprapubic site was developed with a 5 mm port. Pelvis was evaluated findings as above. Anatomy was unremarkable. Chromotubation was performed and showed bilateral fill and spill of fallopian tubes. No abnormalities were noted. The lower sleeve having been removed under direct visualization. The upper port was removed and the incisions were closed with single subcuticular interrupted suture of 3-0 Monocryl. The incisions were further approximated with Dermabond skin glue. The uterine manipulator and Espinal catheter removed. Patient was returned to the supine position and awakened from general endotracheal anesthesia. She left the operating room in good condition.
[2020-02-11] MEDS ORDERED: fentaNYL 100 MCG/2 ML SDV IVPUSH PRN (09:08)
--- NOTE | 2020-02-11 09:08 | PCM.POSTAN ---
POST ANESTHESIA ASSESSMENT - MENTAL STATUS Mental Status: Somnolent - VITAL SIGNS Vital Signs: Last Vital Signs Temp 97.6 F 02/11/20 08:54 Pulse 85 02/11/20 07:15 Resp 12 02/11/20 09:00 BP 119/75 02/11/20 09:00 Pulse Ox 100 02/11/20 09:00 - RESPIRATORY Respiratory Status: Respiratory Rate WNL, Airway Patent, O2 Saturation Stable, Supplemental Oxygen - CARDIOVASCULAR CV Status: Pulse Rate WNL, Blood Pressure Stable - GASTROINTESTINAL GI Status: No Symptoms - PAIN Pain Score: 0 - POST OP HYDRATION Hydration Status: Adequate & Stable
[2020-02-11] MEDS ORDERED: Haloperidol Lactate 5 MG/ML SDV IVPUSH STA (11:20)
[2020-02-11 13:09] VITALS: PULSE 64
[2020-02-11 14:16] VITALS: BP 102/64
[2020-02-11] MEDS ORDERED: Ketorolac 30 MG/ML SDV IVPUSH SCH (14:30)
--- NOTE | 2020-02-11 17:44 | PCM48HPAN ---
Post Anesthesia Note - EVALUATION WITHIN 48HRS OF ANESTHETIC Vital Signs in Normal Range: Yes Patient Participated in Evaluation: Yes Respiratory Function Stable: Yes Airway Patent: Yes Cardiovascular Function Stable: Yes Hydration Status Stable: Yes Pain Control Satisfactory: Yes Nausea and Vomiting Control Satisfactory: Yes Mental Status Recovered: Yes Vital Signs: Last Vital Signs Temp 97.4 F 02/11/20 13:30 Pulse 64 02/11/20 13:30 Resp 16 02/11/20 13:30 BP 102/64 02/11/20 13:30 Pulse Ox 97 02/11/20 13:30 - COMMENTS/OBSERVATIONS Free Text/Narrative:: Patient is being discharged home.
== END 2020-02-11 13:56 | disposition home or self-care (01) ==
LOC: JD.SDS 07:02
PROVIDERS: ATTEND Obstetrics & Gynecology
DX: R10.2 Pelvic and perineal pain (principal); G89.29 Other chronic pain; N97.9 Female infertility, unspecified; N86 Erosion and ectropion of cervix uteri; N94.10 Unspecified dyspareunia; K21.9 Gastro-esophageal reflux disease without esophagitis; F41.9 Anxiety disorder, unspecified; F32.9 Major depressive disorder, single episode, unspecified; E03.9 Hypothyroidism, unspecified; Z79.890 Hormone replacement therapy; Z79.899 Other long term (current) drug therapy
CPT/HCPCS: 49320; 58350; 81025; J0330; J0690; J1630; J1885; J2001; J2250; J2704; J2710; J3010; J3490; J7060; J7120; 00840; J2405

== ENCOUNTER 2021-03-17 06:56 | Inpatient (IN) | payer OTHER ==
[2021-03-17] MEDS ORDERED: Ondansetron 4 MG/2 ML SDV IVPUSH PRN (07:12)
[2021-03-17] MEDS ORDERED: Nalbuphine 10 MG/1 ML Vial IVPUSH PRN (07:12)
[2021-03-17] MEDS ORDERED: Sodium Chloride 0.9% 10 ML Syringe FLUSH PRN (07:12)
[2021-03-17] MEDS ORDERED: Lactated Ringers 1,000 ML IV SCH (07:15)
[2021-03-17] MEDS ORDERED: Oxytocin/Lactated Ringers 10 UNIT/1,000 ML BAG IV SCH ×2 (07:15)
--- NOTE | 2021-03-17 09:13 | PCM.LDHP ---
L&D History of Present Illness - General Date of Service: 03/17/21 Admit Problem/Dx: Patient Status Order with Admit Dx/Problem 03/17/21 07:12 Patient Status [ADT] Routine Admission Diagnosis/Problem Admission Diagnosis/Problem 03/17/21 09:03 Harvinder is a 25-year-old 2 para 1-0-0-1 white female presently at 38-4/7 weeks gestational age with an HANNAH of 03/27/2021 admitted on the a.m. of 03/17 for medical induction of labor because of history of pulmonary emboli. Patient is bridged off of her prophylactic Lovenox 2 days ago. Source of Information: Patient History Limitations: Reports: No Limitations - History of Present Illness Introduction:: Harvinder is a 25-year-old 2 para 1-0-0-1 white female presently at 38-4/7 weeks gestational age with an HANNAH of 03/27/2021 admitted on the a.m. of 03/17/2021 for medical induction of labor because of history of pulmonary emboli. Patient is bridged off of her prophylactic Lovenox 2 days ago NIPPLE THREADER history: 2 para 1-0-0-1. Patient had menarche at approximately age 13. Cycles are fairly regular. Her HANNAH of 03/27/2021 was set by a 7 -2/7-week ultrasound done 08/10/2020. Last menstrual period is uncertain. Not using any control at the time of conception. No STIs noted in the past. Patient has previous history of pulmonary emboli related to hormonal use. She is known to be homozygous factor V Leiden mutation positive. She is also positive for lupus anticoagulant. And also has an Antithrombin III deficiency. She has been on Lovenox prophylaxis throughout this . She stopped it approximately 2 nights ago and is bridged off of it for the induction. history: Patient was first seen at 7-2/7 weeks gestational age on 08/10/2020. She was seen on a very regular basis throughout the . Her first visit was on 10/12/2020. Weight gain throughout the was from 160.8 to 187 pounds. Her vital signs remained stable throughout the course. She had no significant problems with the Lovenox therapy. Her fundal height has been appropriate. She is group B strep negative. She had an abnormal 1 hour GTT but a normal 3-hour glucose tolerance test. She declined genetic testing. [employer] depression screen score on 11/24/2020 was 15/30. She has a history of gestational hypertension with previous . No hypertension this . Patient immunization history shows that she is rubella immune. Tdap was given on 02/04/2021. She had varicella immunization May 27, 2015. Hepatitis B immunization in 1996 and meningococcal immunization in 2013. Laboratory testing in shows the following: At first cris visit her blood is a positive with a negative antibody screen. Hemoglobin is 13.9 g/dL and platelets are 291,000. She is rubella immune. RPR is nonreactive. Urine culture was negative. Hepatitis B surface antigen and HIV assays were both negative. Chlamydia and gonorrhea tests were both negative. Second trimester l abs showed a hemoglobin of 12.7 g/dL and platelets at 220,000. Her 1 hour glucose was 150. 3-hour glucose was done and showed a fasting blood sugar of 80, a 1 hour glucose of 136, a 2-hour glucose of 141 and a 3-hour glucose of 137. Repeat hemoglobin on 02/24/2021 was 13.2 and platelets were 198,000. She is group B strep negative. RPR done 12/15/2020 was nonreactive. Allergies: Seasonal only. No known drug allergies. Medications: 1. vitamins daily 2. Potassium chloride Crystal extended release 20 mEq/day 3. NAC 500 mg/day 4. Turmeric curcumin oral tablet 1 daily 4. Lovenox 40 mg subcu daily 5. Vitamin E E1 100 units daily 6. Probiotic capsules daily 7. Vitamin B12 1 tablet daily 8. Claritin 10 mg p.o. daily as needed for seasonal allergies. Past medical history: 1. High risk for thromboembolic phenomena secondary to her homozygous factor V Leiden mutation positive status, her antilupus antibody presents and her Antithrombin III deficiency. 2. History of depression and anxiety with previous 4. History of abnormal Pap smear December 2019. Social history: Patient is . is Lalit. She denies any significance alcohol, drugs or tobacco. She works at [employer] here in [place]. She lives in [place], [place]. Family history: Mother is alive with history of varicosities. Father is alive and well. 1 brother alive and well. 2 sisters alive and well. Paternal grandmother is alive. But maternal grandfather history unknown. Patient's mother is adopted. Paternal grandmother alive and well. Paternal grandfather secondary to liver cancer. No bleeding, clotting, anesthesia, or asthma related problems noted in the family. Review of systems: In general patient has no complaints. Baby has been active and patient has not had any significant contractions or loss of vaginal fluid. Skin: Negative Lungs: No infectious symptoms or shortness of breath Cardiovascular: No chest pain or exercise intolerance Breasts: No lumps, changes in size, pain, dimpling, discharge or axillary or supraclavicular concerns. GI: Negative : changes only. Musculoskeletal: Negative Neurological: Negative In general the patient is well-developed, well-nourished, pleasant female of stated age in no acute distress. On last evaluation clinic on 03/11/2021 her blood pressure 108/70. Weight was 187 with pregravid weight of 161. heart rate is 136. Prepregnancy body mass index is 25.4 and height is 5 feet 4 inches. Skin is warm dry without lesions. HEENT, neck and back within normal limits. Lungs are clear with good breath sounds in all lung dumont. Cardiovascular exam shows regular and rhythm without murmurs. Breast exam is deferred at this time having been done at first cris visit and found to be normal. Abdomen is gravid with last fundal height in clinic at 38.5 cm. Baby in vertex presentation. Genital per digital exam in clinic on last visit was 2 cm, 70% effaced, soft, mid position, -3 station. It is essentially the same at this time on evaluation in L&D. Extremities and neurological exam are grossly within normal limits. - Related Data Allergies/Adverse Reactions: Allergies Allergy/AdvReac Type Severity Reaction Status Date / Time No Known Allergies Allergy Verified 03/17/21 08:26 Home Medications: Home Meds Enoxaparin [Lovenox] 40 mg SUBCUT DAILY 10/05/16 [History] Potassium Chloride 20 meq PO DAILY 02/10/20 [History] Pnv No.95/Ferrous Fum/Folic AC [ Tablet] 1 each PO DAILY 03/17/21 [History] Past Medical History - Past Health History Medical/Surgical History: Denies Medical/Surgical History HEENT History: Reports: Other (See Below) Other HEENT History: jaw pain Cardiovascular History: Reports: Other (See Below) Other Cardiovascular History: palpitations, tachycardia Respiratory History: Reports: PE Other Respiratory History: PE June 2015 Gastrointestinal History: Reports: Gastritis, GERD, Other (See Below) Other Gastrointestinal History: Ulcer Genitourinary History: Reports: Retention, Urinary, Other (See Below) Other Genitourinary History: hematuria, chlamydia, urinary frequency NIPPLE THREADER History: Reports: Polycystic Ovaries, , Other (See Below) Other OB/BYN History: uterine laprascopy Musculoskeletal History: Reports: Other (See Below) Other Musculoskeletal History: low back pain, chest wall pain, myalgias Neurological History: Reports: Migraines Other Neuro History: dizziness, paresthesias Psychiatric History: Reports: Depression Other Psychiatric History: hypersomnia, insomnia, fatigue Endocrine/Metabolic History: Reports: Vitamin D Deficiency, Other (See Below) Other Endocrine/Metabolic History: abnormal TSH, hypoglycemia Hematologic History: Reports: Other (See Below) Other Hematologic History: factor 5 Leiden , antithrombin 3 deficiency, bleeding disorder, hypokalemia, anemia Immunologic History: Reports: None Oncologic (Cancer) History: Reports: None Dermatologic History: Reports: None Other Dermatologic History: ance - Past Surgical History Head Surgeries/Procedures: Reports: None HEENT Surgical History: Reports: Tonsillectomy Cardiovascular Surgical History: Reports: None Respiratory Surgical History: Reports: None GI Surgical History: Reports: None Endocrine Surgical History: Reports: None Neurological Surgical History: Reports: None Oncologic Surgical History: Reports: None Social & Family History - Family History Family Medical History: No Pertinent Family History - Tobacco Use Tobacco Use Status *Q: Never Tobacco User Second Hand Smoke Exposure: No - Caffeine Use Caffeine Use: Reports: Soda - Recreational Drug Use Recreational Drug Use: No H&P Review of Systems - Review of Systems: Review Of Systems: See Below L&D Exam - Exam Exam: See Below - Vital Signs Weight: 85.729 kg - Patient Data Lab Results Last 24 hrs: Laboratory Results - last 24 hr 03/17/21 03/17/21 Range/Units 07:20 07:29 WBC 9.39 (3.98-10.04) K/mm3 RBC 4.38 (3.98-5.22) M/mm3 Hgb 13.0 (11.2-15.7) gm/dl Hct 36.6 (34.1-44.9) % MCV 83.6 (79.4-94.8) fl MCH 29.7 (25.6-32.2) pg MCHC 35.5 (32.2-35.5) g/dl RDW Std Deviation 38.6 (36.4-46.3) fL Plt Count 199 (182-369) K/mm3 MPV 9.2 L (9.4-12.3) fl Neut % (Auto) 72.8 H (34.0-71.1) % Lymph % (Auto) 20.0 (19.3-51.7) % [place] % (Auto) 6.5 (4.7-12.5) % Eos % (Auto) 0.2 L (0.7-5.8) Baso % (Auto) 0.2 (0.1-1.2) % Neut # (Auto) 6.83 H (1.56-6.13) K/mm3 Lymph # (Auto) 1.88 (1.18-3.74) K/mm3 [place] # (Auto) 0.61 H (0.24-0.36) K/mm3 Eos # (Auto) 0.02 L (0.04-0.36) K/mm3 Baso # (Auto) 0.02 (0.01-0.08) K/mm3 SARS-CoV-2 RNA (HUI) Negative (NEGATIVE) Result Diagrams: 03/17/21 07:20 - Problem List (1) High risk factor score for venous thromboembolism SNOMED Code(s): 698895857 ICD Code: Z91.89 - [facility] PERSONAL RISK FACTORS, NOT ELSEWHERE CLASSIFIED Status: Acute Current Visit: Yes (2) 38 weeks gestation of SNOMED Code(s): 87056185 ICD Code: Z3A.38 - 38 WEEKS GESTATION OF Status: Acute Current Visit: Yes Problem List Initiated/Reviewed/Updated: Yes Orders Last 24hrs: Active Orders 24 hr Category Date Time Status Patient Status [ADT] Routine ADT 03/17/21 07:12 Active Activity as Tolerated [RC] PFP Care 03/17/21 07:12 Active Communication Order [RC] ASDIRECTED Care 03/17/21 07:12 Active Heart Tones [RC] ASDIRECTED Care 03/17/21 07:12 Active Non Stress Test [RC] PER UNIT ROUTINE Care 03/17/21 07:12 Active Notify Provider [RC] PFP Care 03/17/21 07:12 Active Notify Provider [RC] PRN Care 03/17/21 07:12 Active Peripheral IV Care [RC] . DIRECTED Care 03/17/21 07:12 Active Vital Signs [RC] PER UNIT ROUTINE Care 03/17/21 07:12 Active Regular Diet [DIET] Diet 03/17/21 Breakfast Active RAPID PLASMA REAGIN,RPR [CHEM] Routine Lab 03/17/21 07:20 Received Lactated Ringers [Ringers, Lactated] 1,000 ml Med 03/17/21 07:15 Active IV ASDIRECTED Nalbuphine [Nubain] Med 03/17/21 07:12 Active 10 mg IVPUSH Q2H PRN Ondansetron [Zofran] Med 03/17/21 07:12 Active 4 mg IVPUSH Q4H PRN Oxytocin/Lactated Ringers [Pitocin in LR 10 Units/1,000 Med 03/17/21 07:15 Active ML] 10 unit in 1,000 ml IV .CONTINUOUS Oxytocin/Lactated Ringers [Pitocin in LR 10 Units/1,000 Med 03/17/21 07:15 Active ML] 10 unit in 1,000 ml IV TITRATE Sodium Chloride 0.9% [Saline Flush] Med 03/17/21 07:12 Active 10 ml FLUSH ASDIRECTED PRN Electronic Heart Tones Ext w TOCO [WOMSER] Oth 03/17/21 07:12 Ordered Routine Electronic Heart Tones Internal [WOMSER] Per Unit Oth 03/17/21 07:12 Ordered Routine Peripheral IV Insertion Adult [OM.PC] Routine Oth 03/17/21 07:12 Ordered Resuscitation Status Routine Resus Stat 03/17/21 07:12 Ordered Medication Orders Oxytocin/Lactated Ringer's (Pitocin In Lr 10 Units/1,000 Ml) 10 unit in 1,000 mls @ 12 mls/hr IV TITRATE TABATHA; Protocol Last Admin: 03/17/21 08:05 Dose: 2 munits/min, 12 mls/hr Documented by: MICHAEL Oxytocin/Lactated Ringer's (Pitocin In Lr 10 Units/1,000 Ml) 10 unit in 1,000 mls @ 500 mls/hr IV .CONTINUOUS TABATHA Lactated Ringer's (Ringers, Lactated) 1,000 mls @ 100 mls/hr IV ASDIRECTED [facility] Last Admin: 03/17/21 08:04 Dose: 100 mls/hr Documented by: MICHAEL Nalbuphine HCl (Nalbuphine 10 Mg/1 Ml Vial) 10 mg IVPUSH Q2H PRN PRN Reason: Pain Ondansetron HCl (Ondansetron 4 Mg/2 Ml Sdv) 4 mg IVPUSH Q4H PRN PRN Reason: Nausea/Vomiting Sodium Chloride (Sodium Chloride 0.9% 10 Ml Syringe) 10 ml FLUSH ASDIRECTED PRN PRN Reason: Keep Vein Open Assessment/Plan Comment:: Lesly is a 25-year-old 2 para 1-0-0-1 white female presently at 38- 4/7 weeks gestational age with an HANNAH of 03/27/2021 admitted on the a.m. of 03/17/2021 for medical induction of labor because of history of pulmonary emboli. Patient is bridged off of her prophylactic Lovenox 2 days ago 2. Patient plans to breast-feed 3. Patient desires natural labor 4. Patient is rubella immune 5. Patient had her Tdap during the course of the 6. Patient stopped her Lovenox therapy 2-3 days ago to bridge off of medication for induction of labor Plan: 1. Pitocin induction with AROM augmentation as appropriate 2. Natural labor per patient desire. She is aware that she can have epidural if so desires. 3. Support breast-feeding decision 4. Routine admission labs including CBC, RPR, COVID-19 testing 5. Anticipate .
--- NOTE | 2021-03-17 20:09 | PCM.SN.2 ---
- Free Text/Narrative Note: Delivery note: Stage I: Harvinder is a 25-year-old 2 para 1-0-0-1 white female presently at 38-4/7 weeks gestational age with an HANNAH of 03/27/2021 admitted on the a.m. of 03/17/2021 for medical induction of labor because of history of pulmonary emboli. Patient is bridged off of her prophylactic Lovenox 2 days ago. Induction was initially started with Pitocin followed by AROM with resultant clear amniotic fluid. Patient progressed steadily throughout the day. She did natural labor with the exception of 1-2 doses of Nubain which gave her minimal to moderate relief of her discomfort. At approximately 1920 hrs. patient achieved complete cervical dilation. heart tones were generally reassuring with good variability. Had some variable decelerations and early decelerations noted. Stage II: Patient delivered a viable, bonner, female infant with Apgars of 8 and 9, a weight of 3310 gms, (7# 5 oz) in a direct occiput anterior position. There was a loose nuchal cord x1 which was reduced over the baby's head. The baby was delivered with gentle downward and then upward traction delivering the anterior and then posterior shoulder respectively. Baby was placed on mom's abdomen. She was dried with a warm blanket. Pitocin was increased to 500 cc/h using a 10 unit/L concentration solution. The umbilical cord was allowed to pulsate for approximately 2 minutes then was clamped x2 and cut by the baby's father. The umbilical cord had 3 vessels. Cord blood was obtained. No lacerations occurred and perineum and vagina was intact. No suturing was needed. Stage III: The placenta delivered at 1942 hrs. in a Ontiveros presentation, it appeared intact and complete and was discarded per patient desire. The patient plans to breast-feed. Estimated blood loss was 100 cc. Condition: Good
[2021-03-17] MEDS ORDERED: Docusate Sodium 100 MG Cap PO PRN (23:08)
[2021-03-17] MEDS ORDERED: Benzocaine/Menthol 20%-0.5% Spray 56 GM Canister TOP PRN (23:08)
[2021-03-18] MEDS: Enoxaparin 40 MG/0.4 ML Syringe SUBCUT SCH ×2 (00:02→08:18)
[2021-03-18] MEDS: Witch Hazel Medicated Pads 40/Jar TOP PRN ×2 (02:57→08:14)
[2021-03-18] MEDS: Acetaminophen 325 MG Tab PO PRN ×4 (03:54→21:29)
[2021-03-18] MEDS: Prenatal Multivitamin with Calcium/Folic Acid/Iron Tab PO SCH (08:18)
--- NOTE | 2021-03-18 08:28 | PCM.SN.2 ---
- Free Text/Narrative Note: Post Progress Note PPD #1 Subjective: Doing well overall. Ambulating without difficulty. Lochia minimal. Reports that she is changing a pad about every 3 hours or so. Voiding without difficulty. Tolerating regular diet without nausea or vomiting. Pain controlled with oral medications. Breast-feeding with minimal difficulty. Objective: Vitals: Vital Signs - 24 hr 03/18/21 03/18/21 03:44 07:52 Temperature 36.6 C 36.7 C Pulse, 73 65 Peripheral Respiratory 14 14 Rate Blood Pressure 134/76 150/95 H O2 Sat by Pulse 98 96 Oximetry Physical Exam General: Alert and oriented, no acute distress Lungs: Clear to auscultation bilaterally Heart: Regular rate and rhythm Abdomen: Soft, minimal appropriate tenderness, non-distended, fundus midline, nontender, and at the umbilicus Extremities: No edema Laboratory Results - last 24 hr 03/17/21 03/17/21 Range/Units 07:20 07:29 RPR Non-reactive (NONREACTIVE) SARS-CoV-2 RNA (HUI) Negative (NEGATIVE) ASSESSMENT: 25-year-old female -0-0-2 s/p normal vaginal delivery PPD #1, complicated by Antithrombin III deficiency, homozygous factor V Leiden, positive lupus anticoagulant, with history of pulmonary embolism on oral contraceptive use in the past, history of depression with increasing depression during this but not on medications and history of gestational hypertension PLAN: Doing well Breast-feeding with minimal difficulty. Assist as needed Lochia minimal. Continue to monitor for appropriate lochia. Continue routine care Continue Lovenox 40 mg subcutaneous daily for history of pulmonary embolism with multiple hypercoagulable conditions Patient with history of depression and depression and is considering starting on citalopram at this time Anticipate discharge home today if she continues to progress normally and is stable for discharge You Lewis MD 8:26 AM 03/18/2021
[2021-03-18] MEDS: Citalopram 10 MG Tab PO SCH (16:10)
[2021-03-19] MEDS: Acetaminophen 325 MG Tab PO PRN ×2 (03:03→07:24)
[2021-03-19] MEDS: Witch Hazel Medicated Pads 40/Jar TOP PRN (07:25)
[2021-03-19] MEDS: Enoxaparin 40 MG/0.4 ML Syringe SUBCUT SCH (09:03)
[2021-03-19] MEDS: Citalopram 10 MG Tab PO SCH (09:03)
[2021-03-19] MEDS: Prenatal Multivitamin with Calcium/Folic Acid/Iron Tab PO SCH (09:03)
[2021-03-19 09:27] VITALS: BP 126/94; PULSE 64
--- NOTE | 2021-03-19 09:54 | PCM.DCSUM1 ---
Discharge Summary - Hospital Course Free Text/Narrative:: Stage I: Harvinder is a 25-year-old 2 para 1-0-0-1 white female presently at 38-4/7 weeks gestational age with an HANNAH of 03/27/2021 admitted on the a.m. of 03/17/2021 for medical induction of labor because of history of pulmonary emboli. Patient is bridged off of her prophylactic Lovenox 2 days ago. Induction was initially started with Pitocin followed by AROM with resultant clear amniotic fluid. Patient progressed steadily throughout the day. She did natural labor with the exception of 1-2 doses of Nubain which gave her minimal to moderate relief of her discomfort. At approximately 1920 hrs. patient achieved complete cervical dilation. heart tones were generally reassuring with good variability. Had some variable decelerations and early decelerations noted. Stage II: Patient delivered a viable, bonner, female with Apgars of 8 and 9, a weight of 3310 gms, (7# 5 oz) in a direct occiput anterior position. There was a loose nuchal cord x1 which was reduced over the baby's head. The baby was delivered with gentle downward and then upward traction delivering the anterior and then posterior shoulder respectively. Baby was placed on mom's abdomen. She was dried with a warm blanket. Pitocin was increased to 500 cc/h using a 10 unit/L concentration solution. The umbilical cord was allowed to pulsate for approximately 2 minutes then was clamped x2 and cut by the baby's father. The umbilical cord had 3 vessels. Cord blood was obtained. No lacerations occurred and perineum and vagina was intact. No suturing was needed. Stage III: The placenta delivered at 1942 hrs. in a Ontiveros presentation, it appeared intact and complete and was discarded per patient desire. The patient plans to breast-feed. Estimated blood loss was 100 cc. patient was restarted on Lovenox 40 mg subcu daily within 24 hours of the time of delivery. She has done well. She is having minimal lochia, voiding well, nursing without problems and ambulating without concerns. She is desiring discharge home. Condition: Good Diagnosis: Stroke: No - Discharge Data Discharge Date: 03/19/21 Discharge Disposition: Home, Self-Care 01 Condition: Good - Referral to Home Health Primary Care Physician: Jeffrey Bob PA-C - Discharge Diagnosis/Problem(s) (1) High risk factor score for venous thromboembolism SNOMED Code(s): 898144493 ICD Code: Z91.89 - [facility] PERSONAL RISK FACTORS, NOT ELSEWHERE CLASSIFIED Status: Acute Current Visit: Yes (2) 38 weeks gestation of SNOMED Code(s): 94056693 ICD Code: Z3A.38 - 38 WEEKS GESTATION OF Status: Acute Current Visit: Yes - Patient Instructions Diet: Regular Diet as Tolerated (Nursing diet with increased calories and calcium as recommended) Activity: As Tolerated (No intercourse or tampons until bleeding resolves.) Driving: May Drive Today Showering/Bathing: May Shower (May take a bath) Notify Provider of: Fever, Increased Pain, Swelling and Redness (DVT symptomatology.), Nausea and/or Vomiting - Discharge Plan Home Medications: Home Meds Enoxaparin [Lovenox] 40 mg SUBCUT DAILY 10/05/16 [History] Acetaminophen [Tylenol] 650 mg PO Q4H PRN tablet 03/19/21 [Rx] Citalopram [Citalopram HBr] 10 mg PO DAILY tablet 03/19/21 [Rx] Vit with Ca/FA/Iron [ Plus Iron] 1 each PO DAILY tablet 03/19/21 [Rx] Referrals: Eddie Farnsworth MD [Family Provider] - (Return [facility] weeks.) - Discharge Summary/Plan Comment DC Time >30 min.: No Discharge Summary/Plan Comment: Discharge instructions: 1. Discharge home 2. Diet, activity and follow-up discussed with patient. Recommend nursing diet with increased calories and calcium. 3. Precautions given concern increased pain, bleeding, temperature, signs/symptoms of DVT/PE. 4. Medications per home medication was printed, discussed with and given to the patient. 5. Return to clinic-Dr. Farnsworth[facility] in 2 weeks. Diagnosis: Term -delivered Condition: Good - Patient Data Vitals - Most Recent: Last Vital Signs Temp 36.6 C 03/19/21 09:15 Pulse 64 03/19/21 09:16 Resp 14 03/19/21 09:15 BP 126/94 H 03/19/21 09:16 Pulse Ox 97 03/19/21 09:16 Weight - Most Recent: 85.729 kg I&O - Last 24 hours: Intake & Output 03/18/21 03/19/21 03/19/21 22:59 06:59 14:59 Intake Total 0 Balance 0 Med Orders - Current: Current Medications Acetaminophen (Acetaminophen 325 Mg Tab) 650 mg PO Q4H PRN PRN Reason: mild pain or fever Last Admin: 03/19/21 07:24 Dose: 650 mg Documented by: Benzocaine/Menthol (Benzocaine/Menthol 20%-0.5% [place] 56 Gm Canister) 0 gm TOP ASDIRECTED PRN PRN Reason: Perineal Comfort Measure Last Admin: 03/18/21 02:57 Dose: 1 canister Documented by: Citalopram Hydrobromide (Citalopram 10 Mg Tab) 10 mg PO DAILY TABATHA Last Admin: 03/19/21 09:03 Dose: 10 mg Documented by: Docusate Sodium (Docusate Sodium 100 Mg Cap) 100 mg PO BID PRN PRN Reason: Constipation Last Admin: 03/18/21 06:43 Dose: 100 mg Documented by: Enoxaparin Sodium (Enoxaparin 40 Mg/0.4 Ml Syringe) 40 mg SUBCUT DAILY TABATHA Last Admin: 03/19/21 09:03 Dose: 40 mg Documented by: Prenat Multivit/Sanders/Iron/Folic Ac ( Multivitamin With Calcium/Folic Acid/Iron Tab) 1 each PO DAILY TABATHA Last Admin: 03/19/21 09:03 Dose: 1 each Documented by: Odin Greenwood (Odin Greenwood Medicated Pads 40/Jar) 1 pad TOP ASDIRECTED PRN PRN Reason: Perineal Comfort Measure Last Admin: 03/19/21 07:25 Dose: 1 container Documented by: Discontinued Medications Oxytocin/Lactated Ringer's (Pitocin In Lr 10 Units/1,000 Ml) 10 unit in 1,000 mls @ 12 mls/hr IV TITRATE TABATHA; Protocol Last Titration: 03/17/21 18:59 Dose: 16 munits/min, 96 mls/hr Documented by: Oxytocin/Lactated Ringer's (Pitocin In Lr 10 Units/1,000 Ml) 10 unit in 1,000 mls @ 500 mls/hr IV .CONTINUOUS TABATHA Last Admin: 03/17/21 21:00 Dose: 500 mls/hr Documented by: Lactated Ringer's (Ringers, Lactated) 1,000 mls @ 100 mls/hr IV ASDIRECTED TABATHA Last Admin: 03/17/21 08:04 Dose: 100 mls/hr Documented by: Nalbuphine HCl (Nalbuphine 10 Mg/1 Ml Vial) 10 mg IVPUSH Q2H PRN PRN Reason: Pain Last Admin: 03/17/21 16:59 Dose: 10 mg Documented by: Ondansetron HCl (Ondansetron 4 Mg/2 Ml Sdv) 4 mg IVPUSH Q4H PRN PRN Reason: Nausea/Vomiting Sodium Chloride (Sodium Chloride 0.9% 10 Ml Syringe) 10 ml FLUSH ASDIRECTED PRN PRN Reason: Keep Vein Open
== END 2021-03-19 14:00 | disposition home or self-care (01) | DRG 806 ==
LOC: JD.OB 06:56 → OBSVTOIN 19:36 → JD.OB 19:36
PROVIDERS: ADMIT Obstetrics & Gynecology; ATTEND Obstetrics & Gynecology
PROC: 10E0XZZ Delivery of Products of Conception, External Approach (ICD-10-PCS; principal; 2021-03-17)
PROC: 10907ZC Drainage of Amniotic Fluid, Therapeutic from Products of Conception, Via Natural or Artificial Opening (ICD-10-PCS; 2021-03-17)
PROC: 3E033VJ Introduction of Other Hormone into Peripheral Vein, Percutaneous Approach (ICD-10-PCS; 2021-03-17)
DX: O99.12 Other diseases of the blood and blood-forming organs and certain disorders involving the immune mechanism complicating childbirth (principal); D68.59 Other primary thrombophilia; Z37.0 Single live birth; D68.51 Activated protein C resistance; O76 Abnormality in fetal heart rate and rhythm complicating labor and delivery; O69.81X0 Labor and delivery complicated by cord around neck, without compression, not applicable or unspecified; Z20.822 Contact with and (suspected) exposure to COVID-19; O99.62 Diseases of the digestive system complicating childbirth; K21.9 Gastro-esophageal reflux disease without esophagitis; Z3A.38 38 weeks gestation of pregnancy; Z86.711 Personal history of pulmonary embolism; Z79.01 Long term (current) use of anticoagulants
CPT/HCPCS: 36415; 59025; 59409; 85025; 86592; 86803; A9270-GY; J1650; J2300; J2590; J7120; U0002